=== PATIENT | male | born 1995 | race Two or more races ===

== ENCOUNTER 2019-04-04 23:19 | Emergency (ER) | payer MEDICAID ==
[~2019-04-04] VITALS: Ht 167.6 cm; Wt 75.5 kg
[2019-04-04 23:29] VITALS: BP 116/76
--- NOTE | 2019-04-05 00:38 | NUR ---
Patient/Caregiver given discharge instructions and they have confirmed that they understand the instructions. Patient ambulatory with steady gait.
--- NOTE | 2019-04-05 00:38 | NUR ---
[facility] in [facility] - 04/05/19 at 0038 by DOUGIE Patient/Caregiver given discharge instructions and they have confirmed that they understand the instructions. Patient ambulatory with steady gait.
== END 2019-04-05 00:39 | disposition home or self-care (01) ==
LOC: ED 04-05 00:34
DX: B86 Scabies (principal); F11.10 Opioid abuse, uncomplicated; F15.10 Other stimulant abuse, uncomplicated; Z72.9 Problem related to lifestyle, unspecified
CPT/HCPCS: 99283

== ENCOUNTER 2019-04-20 05:07 | Emergency (ER) | payer MEDICAID ==
[~2019-04-20] VITALS: Ht 167.6 cm; Wt 73.2 kg
--- NOTE | 2019-04-20 05:18 | NUR ---
first contact with pt. pt c/o anxiety attacks x 1 year. ran out of anxiety medication. hyperventilating and tearful in triage. pt's aox4. resps even and unlabored. awaiting orderes.
[2019-04-20] MEDS ORDERED: LORazepam 1MG TABLET PO ONE (05:30)
[2019-04-20] MEDS ORDERED: AZITHROMYCIN 500 MG TABLET PO ONE (05:30)
[2019-04-20] MEDS ORDERED: CEFTRIAXONE 250 MG IM ONE (05:30)
[2019-04-20] MEDS ORDERED: LORazepam 1MG TABLET ONE (05:36)
[2019-04-20] MEDS ORDERED: CEFTRIAXONE 250 MG ONE (05:36)
[2019-04-20] MEDS ORDERED: AZITHROMYCIN 250 MG TABLET ONE (05:36)
[2019-04-20 05:40] VITALS: BP 118/54
--- NOTE | 2019-04-20 05:57 | NUR ---
pt medicated per emar. pt tolerated well.
--- NOTE | 2019-04-20 05:57 | NUR ---
pt amb to br and back to room with steady gait. ua sent.
[2019-04-20 06:10] LABS: MICROSCOPIC AUTO
[2019-04-20 06:13] LABS: CULTURE INDICATED? YES
--- NOTE | 2019-04-20 06:38 | NUR ---
pt given dc instructions and script. pt educated regarding dc medication. pt's aox4. resps even and unlabored. no acute distress at dc. pt amb to dc with steady gait.
== END 2019-04-20 06:39 | disposition home or self-care (01) ==
LOC: ED 05:22
DX: F41.1 Generalized anxiety disorder (principal); R06.4 Hyperventilation; F20.9 Schizophrenia, unspecified; F17.210 Nicotine dependence, cigarettes, uncomplicated
CPT/HCPCS: 81001; 87086; 87491; 87591; 96372; 99284; J0696

== ENCOUNTER 2019-04-26 03:11 | Emergency (ER) | payer MEDICAID ==
[~2019-04-26] VITALS: Ht 167.6 cm; Wt 73.2 kg
--- NOTE | 2019-04-26 03:13 | NUR ---
NIL X 1
[2019-04-26 03:17] VITALS: BP 147/66
--- NOTE | 2019-04-26 03:24 | NUR ---
PT AMBULATES FROM TRIAGE TO ROOM WITH STEADY GAIT.
[2019-04-26] MEDS ORDERED: QUETIAPINE 100MG TABLET PO ONE (04:00)
[2019-04-26] MEDS ORDERED: LORazepam 1MG TABLET PO ONE (04:00)
[2019-04-26] MEDS ORDERED: QUETIAPINE 100MG TABLET ONE (04:06)
[2019-04-26] MEDS ORDERED: LORazepam 1MG TABLET ONE (04:06)
--- NOTE | 2019-04-26 04:08 | NUR ---
PT MEDICATED PER EMAR. PT TOLERATED WELL.
--- NOTE | 2019-04-26 04:37 | NUR ---
PT GIVEN DC INSTRUCTIONS AND SCRIPT. PT EDUCATED REGARDING DC MEDICATION. PT'S AOX4. RESPS EVEN AND UNLABORED. NO ACUTE DISTRESS AT DC.
== END 2019-04-26 04:38 | disposition home or self-care (01) ==
LOC: ED 03:40
DX: F25.9 Schizoaffective disorder, unspecified (principal); F22 Delusional disorders; F17.200 Nicotine dependence, unspecified, uncomplicated; Z72.89 Other problems related to lifestyle
CPT/HCPCS: 99284

== ENCOUNTER 2019-04-27 20:07 | Emergency (ER) | payer MEDICAID ==
[~2019-04-27] VITALS: Ht 167.6 cm; Wt 70.8 kg
[2019-04-27 20:10] VITALS: BP 129/90
[2019-04-27 21:08] LABS: BASOPHILS # (AUTO) 0.02 x10^3/uL (0-0.1); BASOPHILS % (AUTO) 0 % (0-1); EOSINOPHILS # (AUTO) 0.09 x10^3/uL (0-0.4); EOSINOPHILS % (AUTO) 1 % (1-7); LYMPHOCYTES # (AUTO) 1.58 x10^3/uL (1-3.4); LYMPHOCYTES % (AUTO) 23 % (22-44); MD NO; MEAN CORPUSCULAR HGB CONC 33.4 g/dL (33.2-36.2); MEAN CORPUSCULAR VOLUME 89.8 fL (81-97); MEAN PLATELET VOLUME 9.7 fL (7.4-10.4); MONOCYTES # (AUTO) 0.46 x10^3/uL (0.2-0.8); MONOCYTES % (AUTO) 7 % (2-9); NEUTROPHILS # (AUTO) 4.75 x10^3/uL (1.8-6.8); NEUTROPHILS % (AUTO) 69 % (42-75); PLATELET COUNT 187 x10^3/uL (130-400); RED BLOOD COUNT 5.26 x10^6/uL (4.38-5.82)
[2019-04-27 21:10] LABS: ALBUMIN 3.9 g/dL (3.4-5.0); ANION GAP 7 mmol/L (5-15); CHLORIDE 108 mmol/L (98-107)
[2019-04-27 21:12] LABS: CREATININE 0.87 mg/dL (0.7-1.3); SALICYLATE LEVEL < 1.7 mg/dL (2.8-20.0)
[2019-04-27 21:29] LABS: AMPHETAMINE SCREEN, URINE Positive (Negative); BARBITURATE SCREEN, URINE Negative (Negative); BENZODIAZEPINE SCREEN, URINE Negative (Negative); CANNABINOID SCREEN, URINE Negative (Negative); COCAINE SCREEN, URINE Negative (Negative); METHADONE SCREEN, URINE Negative (Negative); OPIATE SCREEN, URINE Positive (Negative)
== END 2019-04-27 22:01 | disposition home or self-care (01) ==
LOC: ED 20:27
DX: B86 Scabies (principal); F15.10 Other stimulant abuse, uncomplicated; F25.9 Schizoaffective disorder, unspecified; F41.9 Anxiety disorder, unspecified; Z72.9 Problem related to lifestyle, unspecified
CPT/HCPCS: 36415; 80048; 80307; 82040; 85025; 99283